=== PATIENT | female | born 1990 | race Caucasian/White ===

== ENCOUNTER → 2017-11-13 16:30 | Outpatient (CLI) | payer OTHER, SELFPAY ==
[2017-11-13 18:36] LABS: Hematocrit 33.3 % (36-46); Hemoglobin 11.5 g/dL (12.0-16.0)
[2017-11-13 19:29] LABS: GTT (PREG) 1 Hour PP 50gm Dose 96 mg/dL (76-139)
== END ==
DX: Z34.82 Encounter for supervision of other normal pregnancy, second trimester (principal)
CPT/HCPCS: 36415; 82950; 85014; 85018

== ENCOUNTER → 2018-02-02 10:37 | Outpatient (CLI) | payer OTHER, MEDICAID, SELFPAY ==
[2018-02-03 08:38] LABS: Strep Grp B PCR NEG for Grp B Strep
== END ==
DX: Z34.83 Encounter for supervision of other normal pregnancy, third trimester (principal); Z3A.36 36 weeks gestation of pregnancy
CPT/HCPCS: 87653

== ENCOUNTER 2018-03-05 18:11 | Inpatient (IN) | payer OTHER, MEDICAID, SELFPAY ==
--- NOTE | 2018-03-05 21:13 | PM.OBHP.1 ---
OB HPI Date/Time Date of admission: 03/05/18 Date Patient Seen: 03/05/18 Time Patient Seen: 21:14 History of Present Condition Chief complaint: : 4 Para: 2 Estimated Date of Delivery: 03/05/18 Estimated Gestational Age (weeks): 40 Narrative: Caryl Mckeon is a 28 year old female who arrived on Labor and delivery in active labor. No signs or symptoms of preeclampsia. Good movement. No leakage of fluid. History of Present care: initiated at week # (8) Dating criteria: LMP confirmed by 1st trimester US Obstetrical complications: none Medical complications: none Preadmission Labs Blood type: AB (+) positive -: Antibody screen: negative, GBS status: negative, HBsAG: negative, HIV: negative, HSV 1: positive, HSV 2: negative and RPR/VDLR: negative -: Rubella: immune and Varicella: immune HCAB: negative Quad screen: Normal 1 hr GTT: 96 Prior (ies) History: 10/15/08 40 weeks gestation 7 lb 6 oz male vaginal delivery 02/26/2015 40 weeks 7 lb male infant vaginal delivery 2017 SAB Evaluation Evaluation Baseline heart rate: 130 Variability: Moderate (11-25) monitor accelerations: Present monitor decelerations: Absent Contraction Frequency (minutes): 4 Uterine Contraction Intensity: Mild Category of Tracing: I Cervical dilation (cm): 5 Cervical effacement (%): 80 station: -1 [facility] Medical History Eczema (Chronic) Pyelonephritis (Resolved) Meds Home Medications Medication Instructions Recorded Confirmed Type Double Electric Breast Pump 1 ea [id number] .prn #1 01/19/18 01/19/18 Rx [id number] Allergies Allergy/AdvReac Type Severity Reaction Status Date / Time No Known Allergies Allergy Uncoded 09/23/17 12:46 Review of Systems Review of Systems All systems reviewed & are unremarkable except as noted in HPI and below Exam Vital Signs (past 8 hours): Blood pressure 111/69, pulse of 81 Narrative Exam Narrative: HEENT exam within normal limits. Lungs are clear to auscultation and percussion. Heart is regular rate and rhythm. No S3-S4 or murmurs. No thyromegaly. Abdomen is gravid and nontender. Fetus is vertex. Extremities are without edema and nontender. Assessment and Plan (1) 40 weeks gestation of : Current visit: Yes Status: Acute (2) Encounter for supervision of other normal , third trimester: Current visit: Yes Status: Acute Plan: Plan: Term in active labor. Negative group B strep culture. Patient requesting epidural catheter. Anticipate vaginal delivery.
--- NOTE | 2018-03-05 21:16 | P.HPOB_ITS ---
OB HPI Date/Time Date of admission: 03/05/18 Date Patient Seen: 03/05/18 Time Patient Seen: 21:14 History of Present Condition Chief complaint: : 4 Para: 2 Estimated Date of Delivery: 03/05/18 Estimated Gestational Age (weeks): 40 Narrative: Caryl Mckeon is a 28 year old female who arrived on Labor and delivery in active labor. No signs or symptoms of preeclampsia. Good movement. No leakage of fluid. History of Present care: initiated at week # (8) Dating criteria: LMP confirmed by 1st trimester US Obstetrical complications: none Medical complications: none Preadmission Labs Blood type: AB (+) positive -: Antibody screen: negative, GBS status: negative, HBsAG: negative, HIV: negative, HSV 1: positive, HSV 2: negative and RPR/VDLR: negative -: Rubella: immune and Varicella: immune HCAB: negative Quad screen: Normal 1 hr GTT: 96 Prior (ies) History: 10/15/08 40 weeks gestation 7 lb 6 oz male vaginal delivery 02/26/2015 40 weeks 7 lb male infant vaginal delivery 2017 SAB Evaluation Evaluation Baseline heart rate: 130 Variability: Moderate (11-25) monitor accelerations: Present monitor decelerations: Absent Contraction Frequency (minutes): 4 Uterine Contraction Intensity: Mild Category of Tracing: I Cervical dilation (cm): 5 Cervical effacement (%): 80 station: -1 [facility] Medical History Eczema (Chronic) Pyelonephritis (Resolved) Meds Home Medications Medication Instructions Recorded Confirmed Type Double Electric Breast Pump 1 ea [id number] .prn #1 01/19/18 01/19/18 Rx [id number] Allergies Allergy/AdvReac Type Severity Reaction Status Date / Time No Known Allergies Allergy Uncoded 09/23/17 12:46 Review of Systems Review of Systems All systems reviewed & are unremarkable except as noted in HPI and below Exam Vital Signs (past 8 hours): Blood pressure 111/69, pulse of 81 Narrative Exam Narrative: HEENT exam within normal limits. Lungs are clear to auscultation and percussion. Heart is regular rate and rhythm. No S3-S4 or murmurs. No thyromegaly. Abdomen is gravid and nontender. Fetus is vertex. Extremities are without edema and nontender. Assessment and Plan (1) 40 weeks gestation of : Current visit: Yes Status: Acute (2) Encounter for supervision of other normal , third trimester: Current visit: Yes Status: Acute Plan: Plan: Term in active labor. Negative group B strep culture. Patient requesting epidural catheter. Anticipate vaginal delivery.
[2018-03-05 21:24] LABS: Add Manual Diff / Slide Review NO; Basophils Percent Auto 0.8 % (0-2); Eosinophils Percent Auto 0.6 % (2-4); Hematocrit 35.7 % (36-46); Hemoglobin 12.5 g/dL (12.0-16.0); Lymphocytes Percent Auto 23.8 % (25-40); Mean Corpuscular HGB Conc 34.9 % (30-36); Mean Corpuscular Hemoglobin 31.6 PG (26-34); Mean Corpuscular Volume 90.7 fL (80-100); Monocytes Percent Auto 6.7 % (3-14); Neutrophils Absolute Auto 6800 /uL (3000-5900); Neutrophils Percent Auto 68.1 % (50-75); Platelet Count 178 X10^3/uL (150-400); Red Blood Cell Count 3.94 X10^6/uL (4.0-5.2); Red Cell Distribution Width 13.8 % (11.6-14.8)
[2018-03-05] MEDS: LACTATED RINGERS 1,000 ML 100 ML IV (21:54)
[2018-03-05 21:55] VITALS: BP 114/67
--- NOTE | 2018-03-06 01:37 | P.PCNOB_ITS ---
Delivery date: 03/06/18 Intrapartal events: None Induction method: none Delivery monitor: external FHT and external uterine Route of delivery: Laceration description: None Estimated blood loss (mL): 100 Anesthesia type: Epidural Narrative: Patient arrived on Labor and delivery in active labor. She received epidural catheter for pain control. heart tones were category 1 to category 2 throughout labor. Patient delivered spontaneously, over an intact perineum, a viable male infant who was placed immediately on maternal abdomen. After the cord stopped pulsating the cord was clamped and cut and cord bloods obtained. The placenta delivered spontaneously, intact with 3 vessels. There were no cervical, vaginal, or perineal tears. Both infant mother doing well. Baby weighed 7 lb 2 oz, 3405 g, with Apgars of 9 and 9 [place] Baby 1: gender: Male Presentation: vertex position: Right Occiput Anterior Placenta delivery description: Spontaneous cord vessel description: 3 Vessels Plan for aftercare: Routine care
[2018-03-06] MEDS: IBUPROFEN 600 MG TABLET PO ×2 (01:45→14:17)
--- NOTE | 2018-03-06 12:45 | P.PN_ITS ---
Subjective Date Patient Seen: 03/06/18 Time Patient Seen: 12:41 Interval history: Patient is 11 hr . She is ambulatory. She has minimal cramping. Her bleeding is minimal. She denies any signs or symptoms of preeclampsia Exam Vital Signs (past 8 hours): Blood pressure 103/73, pulse is 77, temperature 98? Narrative Exam Narrative: Patient's abdomen is soft, nontender. Uterus is firm, at U, nontender. Perineum is intact. Mild lochia. Extremities without edema, nontender. Normal DTRs. Objective Labs Result Diagrams: 03/05/18 21:05 Labs: Laboratory Results - last 24 hr 03/05/18 03/05/18 21:05 21:05 WBC 10.0 RBC 3.94 L Hgb 12.5 Hct 35.7 L MCV 90.7 MCH 31.6 MCHC 34.9 RDW 13.8 Plt Count 178 Neut % (Auto) 68.1 Lymph % (Auto) 23.8 L [place] % (Auto) 6.7 Eos % (Auto) 0.6 L Baso % (Auto) 0.8 Neut # (Auto) 6800 H Blood Type AB Positive Antibody Screen Negative Assessment & Plan (1) Vaginal delivery: Current visit: Yes Status: Acute Plan: Assessment/Plan Narrative: Routine care. Discussion care when she goes home. Signs and symptoms of preeclampsia, blood clot in the leg, infection and depression discussed. Advised patient not to put anything in her vagina for 4 weeks.
[2018-03-06] MEDS: DOCUSATE 250 MG CAPSULE PO (14:17)
[2018-03-07 04:57] LABS: Hematocrit 37.4 % (36-46); Hemoglobin 12.6 g/dL (12.0-16.0)
[2018-03-07] MEDS: DOCUSATE 250 MG CAPSULE PO (09:39)
[2018-03-07 09:59] VITALS: BP 104/72; PULSE 71; RESP 16; TEMP 36.2
[2018-03-07 10:17] VITALS: BP 104/72; PULSE 71; RESP 16; TEMP 36.2
[2018-03-07 10:19] VITALS: BP 104/72; PULSE 71; RESP 16; TEMP 36.2
[2018-03-07 10:21] VITALS: BP 104/72; PULSE 71; RESP 16; TEMP 36.2
[2018-03-07 10:23] VITALS: BP 104/72; PULSE 71; RESP 16; TEMP 36.2
[2018-03-07 11:53] VITALS: BP 104/72; PULSE 71; RESP 16; TEMP 36.2
--- NOTE | 2018-03-07 18:32 | PM.OBDS.1 ---
Discharge Providers Date of admission: 03/06/18 01:48 Consults: 03/06/18 01:48 Consult to Gasket Former Routine Comment: Discharge provider: Desiree Erazo MD Discharge Date: 03/07/18 Summary Date Patient Seen: 03/07/18 Time Patient Seen: 11:30 Hospital Course: Patient is a 28-year-old 4 para 3 day 1. Status post spontaneous vaginal delivery doing very well. is going well. Bleeding is tapering. Pain is minimal. Peripartum Data Delivery Method: Natural Vaginal Laceration description: None Episiotomy description: None Procedures: Spontaneous vaginal delivery complications: none Discharge Diagnosis (1) Vaginal delivery: Status: Acute Status at Discharge Functional status at discharge: independent ambulation Overall status at discharge: patient is progressing back to baseline Time Spent with Patient Total time spent providing and/or coordinating discharge services: Objective Labs Result Diagrams: 03/07/18 04:35 Labs: Laboratory Results - last 24 hr 03/07/18 04:35 Hgb 12.6 Hct 37.4 Discharge Plan Discharge Plan Patient Disposition: Home Discharge comment: Call with fever, chills or bleeding vaginally more than a pad in a hour Discharge Med Rec/Prescriptions Prescriptions: New ibuprofen 600 mg Tablet 600 mg PO Q6HR PRN (Reason: Pain, Mild (1-3)) Qty: 30 RF: 0 No Action Double Electric Breast Pump 1 ea [id number] .prn Qty: 1 RF: 0 Provider Discharge Instructions Diet: Diet as Tolerated and Regular Activity: Nothing in vagina for 4 weeks Skin/Wound/Dressing Care Report to your healthcare provider any signs of infection, such as:: chills, fever, night sweats and unusual drainage Visit Report/Discharge Packet Instructions: DI for Heart Failure, DI for Labor and Delivery, Vaginal Stand Alone Forms: Discharge: Care Visit Report Forms: Congestive Heart Failure, Stroke Signs & Symptoms Discharge Data Attending Provider: Meg Curry Admit Date/Time: 03/06/18 01:48 Discharges patient from system. Discharge Date/Time: 03/07/18 12:10
== END 2018-03-07 12:10 | disposition home or self-care (01) | DRG 775 ==
PROVIDERS: Admitting Provider Specialist; Visit Provider Specialist
DX: O80 Encounter for full-term uncomplicated delivery (principal); Z37.0 Single live birth; Z3A.40 40 weeks gestation of pregnancy
CPT/HCPCS: 01967; 36415; 59050; 59400; 59409; 85014; 85018; 85025; 86850; 86900; 86901; G0378; G0379